=== PATIENT | female | born 1945 | race Caucasian/White ===

== ENCOUNTER 2018-07-16 21:08 | Inpatient (IN) | payer MEDICARE, OTHER ==
[~2018-07-16] VITALS: Ht 149.9 cm; Wt 51.0 kg
[2018-07-16 21:30] LABS: BASOPHILS ABSOLUTE AUTO 0.04 K/mm3 (0.00-0.23); BASOPHILS PERCENT AUTO 0 % (0-2); EOSINOPHILS ABSOLUTE AUTO 0.11 K/mm3 (0.00-0.68); EOSINOPHILS PERCENT AUTO 1 % (0-6); Hematocrit 37.8 % (33.0-51.0); Hemoglobin 12.7 g/dL (11.5-16.0); IMMATURE GRAN ABSOLUTE AUTO 0.05 K/mm3 (0.00-0.10); IMMATURE GRAN PERCENT AUTO 0 % (0-1); LYMPHOCYTES ABSOLUTE AUTO 0.77 K/mm3 (0.84-5.20); LYMPHOCYTES PERCENT AUTO 6 % (21-46); MONOCYTES ABSOLUTE AUTO 0.91 K/mm3 (0.16-1.47); MONOCYTES PERCENT AUTO 8 % (4-13); Mean Corpuscular HGB 33.4 pg (26.0-34.0); Mean Corpuscular HGB Conc 33.6 g/dL (31.5-36.5); Mean Corpuscular Volume 100 fL (80-100); Mean Platelet Volume 9.6 fL (9.1-12.4); NEUTROPHILS ABSOLUTE AUTO 10.33 K/mm3 (1.96-9.15); NEUTROPHILS PERCENT AUTO 85 % (41-73); Platelet Count 240 K/mm3 (150-400); RDW Coefficient Variation 12.2 % (11.7-14.2); RDW Standard Deviation 44.9 fL (35.1-46.3); White Blood Cell Count 12.21 K/mm3 (4.00-11.30)
[2018-07-16] MEDS ORDERED: METFORMIN HCL500 MG PO (21:43)
[2018-07-16] MEDS ORDERED: ONDA4 PO (21:44)
[2018-07-16] MEDS ORDERED: ATOR20 PO (21:44)
[2018-07-16] MEDS ORDERED: Ranitidine HCl300 M1 PO (21:45)
[2018-07-16] MEDS ORDERED: MELO7.5 PO (21:45)
[2018-07-16] MEDS ORDERED: BUDE6HFA INH (21:45)
[2018-07-16 21:51] LABS: Alanine Aminotransfer (ALT/SGP 19 U/L (12-78); Albumin/Globulin Ratio 1.1 (0.8-1.8); Alk Phos 75 U/L (50-136); Anion Gap 7 mmol/L (6-16); Aspartate Aminotrans (AST/SGOT 22 U/L (12-37); Bilirubin, Total 0.5 mg/dL (0.1-1.0); Blood Urea Nitrogen 11 mg/dL (8-24); Bun/Creatinine Ratio 14.8 (12.0-20.0); CO2, Blood 28 mmol/L (21-32); Calcium, Blood 9.4 mg/dL (8.5-10.1); Chloride, Blood 105 mmol/L (98-108); Creatinine, Blood 0.75 mg/dL (0.40-1.00); Globulin, Blood 3.6 g/dL (2.2-4.0); Glomerular Filtration Rate >60 (60-); Glucose, Blood 152 mg/dL (70-99); Sodium, Blood 140 mmol/L (136-145); Total Protein, Blood 7.6 g/dL (6.4-8.2); Troponin I <0.015 ng/mL (0.000-0.040)
[2018-07-17 02:23] LABS: Influenza A Negative (NEGATIVE); Influenza B Negative (NEGATIVE)
[2018-07-17 05:48] LABS: Hematocrit 35.2 % (33.0-51.0); Hemoglobin 11.6 g/dL (11.5-16.0); Mean Corpuscular HGB 33.1 pg (26.0-34.0); Mean Corpuscular Volume 101 fL (80-100); Mean Platelet Volume 9.5 fL (9.1-12.4); Platelet Count 238 K/mm3 (150-400); RDW Coefficient Variation 12.3 % (11.7-14.2); RDW Standard Deviation 45.9 fL (35.1-46.3); White Blood Cell Count 8.82 K/mm3 (4.00-11.30)
[2018-07-17 06:05] LABS: Alanine Aminotransfer (ALT/SGP 18 U/L (12-78); Albumin, Blood 3.5 g/dL (3.4-5.0); Alk Phos 67 U/L (50-136); Anion Gap 8 mmol/L (6-16); Aspartate Aminotrans (AST/SGOT 20 U/L (12-37); Bilirubin, Total 0.3 mg/dL (0.1-1.0); Blood Urea Nitrogen 13 mg/dL (8-24); Bun/Creatinine Ratio 17.4 (12.0-20.0); CO2, Blood 25 mmol/L (21-32); Calcium, Blood 9.3 mg/dL (8.5-10.1); Chloride, Blood 107 mmol/L (98-108); Creatinine, Blood 0.75 mg/dL (0.40-1.00); Globulin, Blood 3.4 g/dL (2.2-4.0); Glomerular Filtration Rate >60 (60-); Glucose, Blood 245 mg/dL (70-99); Potassium, Blood 4.5 mmol/L (3.5-5.5); Sodium, Blood 140 mmol/L (136-145); Total Protein, Blood 6.9 g/dL (6.4-8.2)
[2018-07-17 06:13] LABS: Troponin I 0.027 ng/mL (0.000-0.040)
[2018-07-17 14:12] LABS: Troponin I 0.015 ng/mL (0.000-0.040)
[2018-07-18 02:01] LABS: BASOPHILS ABSOLUTE AUTO 0.01 K/mm3 (0.00-0.23); BASOPHILS PERCENT AUTO 0 % (0-2); EOSINOPHILS PERCENT AUTO 0 % (0-6); Hematocrit 35.9 % (33.0-51.0); Hemoglobin 12.2 g/dL (11.5-16.0); IMMATURE GRAN ABSOLUTE AUTO 0.05 K/mm3 (0.00-0.10); IMMATURE GRAN PERCENT AUTO 1 % (0-1); LYMPHOCYTES ABSOLUTE AUTO 0.54 K/mm3 (0.84-5.20); LYMPHOCYTES PERCENT AUTO 5 % (21-46); MONOCYTES ABSOLUTE AUTO 0.29 K/mm3 (0.16-1.47); MONOCYTES PERCENT AUTO 3 % (4-13); Mean Corpuscular HGB 33.5 pg (26.0-34.0); Mean Corpuscular Volume 99 fL (80-100); Mean Platelet Volume 9.5 fL (9.1-12.4); NEUTROPHILS ABSOLUTE AUTO 9.93 K/mm3 (1.96-9.15); NEUTROPHILS PERCENT AUTO 92 % (41-73); Platelet Count 265 K/mm3 (150-400); RDW Coefficient Variation 12.1 % (11.7-14.2); RDW Standard Deviation 44.1 fL (35.1-46.3); Red Blood Cell Count 3.64 M/mm3 (3.80-5.20); White Blood Cell Count 10.82 K/mm3 (4.00-11.30)
[2018-07-18 02:10] LABS: Anion Gap 8 mmol/L (6-16); Blood Urea Nitrogen 23 mg/dL (8-24); Bun/Creatinine Ratio 29.7 (12.0-20.0); CO2, Blood 27 mmol/L (21-32); Calcium, Blood 9.1 mg/dL (8.5-10.1); Chloride, Blood 106 mmol/L (98-108); Creatinine, Blood 0.77 mg/dL (0.40-1.00); Glomerular Filtration Rate >60 (60-); Glucose, Blood 143 mg/dL (70-99); Potassium, Blood 3.9 mmol/L (3.5-5.5); Sodium, Blood 141 mmol/L (136-145)
[2018-07-18 10:10] LABS: Creatine Kinase MB 9.5 ng/mL (0.0-3.6); Creatine Kinase MB Index 5.9 (0.0-4.0)
[2018-07-19 04:59] LABS: Hematocrit 34.9 % (33.0-51.0); Hemoglobin 11.9 g/dL (11.5-16.0); Mean Corpuscular HGB 33.4 pg (26.0-34.0); Mean Corpuscular HGB Conc 34.1 g/dL (31.5-36.5); Mean Corpuscular Volume 98 fL (80-100); Mean Platelet Volume 9.7 fL (9.1-12.4); Platelet Count 265 K/mm3 (150-400); RDW Coefficient Variation 12.4 % (11.7-14.2); RDW Standard Deviation 44.7 fL (35.1-46.3); Red Blood Cell Count 3.56 M/mm3 (3.80-5.20); White Blood Cell Count 13.38 K/mm3 (4.00-11.30)
[2018-07-19 05:25] LABS: Anion Gap 7 mmol/L (6-16); Blood Urea Nitrogen 36 mg/dL (8-24); CHOL/HDL RATIO 2.8; CO2, Blood 26 mmol/L (21-32); Calcium, Blood 8.9 mg/dL (8.5-10.1); Chloride, Blood 107 mmol/L (98-108); Cholesterol 157 mg/dL (50-200); Creatinine, Blood 0.88 mg/dL (0.40-1.00); Glomerular Filtration Rate >60 (60-); Glucose, Blood 197 mg/dL (70-99); HDL Cholesterol 57 mg/dL (>39); LDL/HDL RATIO 1.4; Low Density Lipoprotein Chol 79 mg/dL (0-110); Sodium, Blood 140 mmol/L (136-145); Triglycerides 105 mg/dL (30-160); Very Low Density Lipoprot Chol 21 mg/dL (6-32)
[2018-07-20] MEDS ORDERED: BENZ100A PO (11:58)
[2018-07-20] MEDS ORDERED: ASPI81CH PO (11:58)
[2018-07-20] MEDS ORDERED: CLOP75 PO (11:59)
[2018-07-20] MEDS ORDERED: COMBIVENT RESPIM4 GM INH (12:00)
[2018-07-20] MEDS ORDERED: SACC250C PO (12:01)
[2018-07-20] MEDS ORDERED: NEBI5 PO (12:01)
[2018-07-20] MEDS ORDERED: ALBU90OI6 INH (12:02)
[2018-07-20] MEDS ORDERED: AZIT500 PO (12:02)
[2018-07-20] MEDS ORDERED: PRED20 PO (12:03)
== END 2018-07-20 18:03 | disposition home or self-care (01) | DRG 189 ==
LOC: ER 21:08 → MEDS 21:09 → EDBEDREQDT 07-17 00:38 → MEDS 07-17 01:42 → ENPENDDIS 07-20 12:07 → MEDS 07-20 16:38
PROVIDERS: Emergency Medicine; Family Medicine; Internal Medicine
DX: J96.01 Acute respiratory failure with hypoxia (principal); I21.4 Non-ST elevation (NSTEMI) myocardial infarction; J44.0 Chronic obstructive pulmonary disease with (acute) lower respiratory infection; J44.1 Chronic obstructive pulmonary disease with (acute) exacerbation; J20.9 Acute bronchitis, unspecified; F41.9 Anxiety disorder, unspecified; K21.9 Gastro-esophageal reflux disease without esophagitis; M19.90 Unspecified osteoarthritis, unspecified site; R10.13 Epigastric pain; E11.65 Type 2 diabetes mellitus with hyperglycemia; F17.210 Nicotine dependence, cigarettes, uncomplicated; I25.10 Atherosclerotic heart disease of native coronary artery without angina pectoris; Z79.4 Long term (current) use of insulin; Z79.82 Long term (current) use of aspirin
CPT/HCPCS: 36415; 71046; 80048; 80053; 80061; 81000; 82550; 82553; 82947; 83036; 83605; 83690; 83880; 84145; 84484; 85025; 85027; 87070; 87205; 87804; 93005; 93010; 93306; 94640; 94644; 94760; 96365; 96375; 99285-25; J0360; J0456; J0696; J1100; J1650; J2405; J2930; J7050

== ENCOUNTER 2019-06-16 07:29 | Day surgery (SDC) | payer MEDICARE, OTHER ==
[~2019-06-16] VITALS: Ht 149.9 cm; Wt 58.8 kg
[~2019-06-16 07:29] MED LIST: ALBU90OI PO; ALBU90OI6 INH; ASPI81CH PO; ATOR20 PO; AZIT500 PO; BENZ100A; BENZ100A PO; BUDE6HFA INH; CLOP75 PO; GUAI600T33 PO; LISI20 PO; MELO7.5 PO; METFORMIN HCL500 MG PO; METO50ER; Mobic15 MG PO; NEBI5 PO; ONDA4 PO; PRED20 PO; Ranitidine HCl300 M1 PO; SACC250C PO
--- NOTE | 2019-06-16 11:49 | NUR ---
06/16/19 1149 Lauren Rios 0841 PT. WITH SCATTERED EXP SQUEAKS POSTERIORLY, DR. PERALES NOTIFIED, DUONEB ORDER GIVEN IN WHICH PT. RECEIVED. 0849 PT. WITH FAINTER SQUEAKS BUT ONLY ON RIGHT SIDE. PT. DENIES SOB. PT. DID VERBALIZE DOING A NEBULIZER AT HOME AROUND 0630. PT. ALSO A SMOKER.
== END 2019-06-16 09:35 | disposition home or self-care (01) ==
LOC: ORSCSDS 07:29
PROVIDERS: Internal Medicine Gastroenterology
PROC: 0DB68ZX Excision of Stomach, Via Natural or Artificial Opening Endoscopic, Diagnostic (ICD-10-PCS; principal; 2019-06-16 08:45)
DX: R10.13 Epigastric pain (principal); K29.70 Gastritis, unspecified, without bleeding; R11.2 Nausea with vomiting, unspecified; K21.9 Gastro-esophageal reflux disease without esophagitis; K29.80 Duodenitis without bleeding; E11.9 Type 2 diabetes mellitus without complications; I10 Essential (primary) hypertension; F17.210 Nicotine dependence, cigarettes, uncomplicated; J44.9 Chronic obstructive pulmonary disease, unspecified; Z79.82 Long term (current) use of aspirin; Z79.84 Long term (current) use of oral hypoglycemic drugs; Z79.899 Other long term (current) drug therapy
CPT/HCPCS: 82947; 88305; 88342; J2704; J7120

== ENCOUNTER 2019-12-25 20:56 | Inpatient (IN) | payer MEDICARE, OTHER ==
[~2019-12-25] VITALS: Ht 160 cm; Wt 47.5 kg
[~2019-12-25 20:56] MED LIST changes: +METO50 PO; -METO50ER
[2019-12-25 21:19] LABS: BASOPHILS ABSOLUTE AUTO 0.04 K/mm3 (0.00-0.23); BASOPHILS PERCENT AUTO 1 % (0-2); EOSINOPHILS PERCENT AUTO 0 % (0-6); Hematocrit 37.1 % (33.0-51.0); Hemoglobin 12.7 g/dL (11.5-16.0); IMMATURE GRAN ABSOLUTE AUTO 0.02 K/mm3 (0.00-0.10); IMMATURE GRAN PERCENT AUTO 0 % (0-1); LYMPHOCYTES ABSOLUTE AUTO 0.86 K/mm3 (0.84-5.20); LYMPHOCYTES PERCENT AUTO 11 % (21-46); MONOCYTES ABSOLUTE AUTO 0.99 K/mm3 (0.16-1.47); MONOCYTES PERCENT AUTO 13 % (4-13); Mean Corpuscular HGB 32.3 pg (26.0-34.0); Mean Corpuscular HGB Conc 34.2 g/dL (31.5-36.5); Mean Corpuscular Volume 94 fL (80-100); Mean Platelet Volume 10.5 fL (9.1-12.4); NEUTROPHILS ABSOLUTE AUTO 6.03 K/mm3 (1.96-9.15); NEUTROPHILS PERCENT AUTO 76 % (41-73); Platelet Count 175 K/mm3 (150-400); RDW Coefficient Variation 11.9 % (11.7-14.2); RDW Standard Deviation 41.6 fL (35.1-46.3); Red Blood Cell Count 3.93 M/mm3 (3.80-5.20); White Blood Cell Count 7.94 K/mm3 (4.00-11.30)
[2019-12-25 21:38] LABS: Anion Gap 7 mmol/L (6-16); Blood Urea Nitrogen 22 mg/dL (8-24); Bun/Creatinine Ratio 23.1 (12.0-20.0); CO2, Blood 25 mmol/L (21-32); Calcium, Blood 9.1 mg/dL (8.5-10.1); Chloride, Blood 103 mmol/L (98-108); Creatinine, Blood 0.95 mg/dL (0.40-1.00); Glomerular Filtration Rate >60 (60-); Glucose, Blood 141 mg/dL (70-99); Sodium, Blood 135 mmol/L (136-145); Troponin I 0.042 ng/mL (0.000-0.040)
[2019-12-25] MEDS ORDERED: OMEP20ER PO (23:00)
[2019-12-25] MEDS ORDERED: BUPROPION XL150 M1 PO (23:00)
[2019-12-25] MEDS ORDERED: ATOR80 PO (23:02)
[2019-12-25 23:09] LABS: Influenza A Negative (NEGATIVE); Influenza B Negative (NEGATIVE)
[2019-12-26 03:25] LABS: Adenovirus Not Detected (NOT DETECT); Bordetella pertussis Not Detected (NOT DETECT); Chlamydophila pneumoniae Not Detected (NOT DETECT); Coronavirus 229E Not Detected (NOT DETECT); Coronavirus HKU1 Not Detected (NOT DETECT); Coronavirus NL63 Not Detected (NOT DETECT); Coronavirus OC43 Not Detected (NOT DETECT); Human Metapneumovirus Not Detected (NOT DETECT); Human Rhinovirus/Enterovirus Not Detected (NOT DETECT); Influenza A/2009-H1 Not Detected (NOT DETECT); Influenza A/H1 Not Detected (NOT DETECT); Influenza A/H3 Not Detected (NOT DETECT); Influenza B Not Detected (NOT DETECT); Mycoplasma pneumoniae Not Detected (NOT DETECT); Parainfluenza Virus 1 Not Detected (NOT DETECT); Parainfluenza Virus 2 Not Detected (NOT DETECT); Parainfluenza Virus 3 Not Detected (NOT DETECT); Parainfluenza Virus 4 Not Detected (NOT DETECT); Respiratory Syncytial Virus Detected (NOT DETECT)
[2019-12-26 05:24] LABS: Hematocrit 36.3 % (33.0-51.0); Hemoglobin 12.1 g/dL (11.5-16.0); Mean Corpuscular HGB Conc 33.3 g/dL (31.5-36.5); Mean Corpuscular Volume 96 fL (80-100); Mean Platelet Volume 10.3 fL (9.1-12.4); Platelet Count 163 K/mm3 (150-400); RDW Standard Deviation 42.7 fL (35.1-46.3); Red Blood Cell Count 3.78 M/mm3 (3.80-5.20); White Blood Cell Count 8.28 K/mm3 (4.00-11.30)
[2019-12-26 05:39] LABS: Alanine Aminotransfer (ALT/SGP 37 U/L (12-78); Albumin, Blood 3.4 g/dL (3.4-5.0); Albumin/Globulin Ratio 0.9 (0.8-1.8); Alk Phos 58 U/L (50-136); Anion Gap 7 mmol/L (6-16); Aspartate Aminotrans (AST/SGOT 53 U/L (12-37); Bilirubin, Total 0.4 mg/dL (0.1-1.0); Blood Urea Nitrogen 25 mg/dL (8-24); Bun/Creatinine Ratio 28.2 (12.0-20.0); CO2, Blood 24 mmol/L (21-32); Calcium, Blood 8.9 mg/dL (8.5-10.1); Chloride, Blood 105 mmol/L (98-108); Creatinine, Blood 0.89 mg/dL (0.40-1.00); Globulin, Blood 3.6 g/dL (2.2-4.0); Glomerular Filtration Rate >60 (60-); Glucose, Blood 217 mg/dL (70-99); Potassium, Blood 4.1 mmol/L (3.5-5.5); Sodium, Blood 136 mmol/L (136-145)
[2019-12-26 05:50] LABS: BAND PERCENT MAN 10 % (0-8); BASOPHILS PERCENT MAN 0 % (0-2); EOSINOPHILS PERCENT MAN 0 % (0-6); LYMPHOCYTES ABSOLUTE MAN 0.41 K/mm3 (0.84-5.20); LYMPHOCYTES PERCENT MAN 5 % (21-46); MONOCYTES ABSOLUTE MAN 0.24 K/mm3 (0.16-1.47); MONOCYTES PERCENT MAN 3 % (4-13); NEUTROPHILS ABSOLUTE MAN 7.61 K/mm3 (1.96-9.15); SEG NEUTROPHILS PERCENT MAN 82 % (41-73); TOTAL CELLS COUNTED 100
[2019-12-26 08:05] LABS: Troponin I 0.034 ng/mL (0.000-0.040)
[2019-12-26 08:19] LABS: Creatine Kinase MB 6.5 ng/mL (0.0-3.6); Creatine Kinase MB Index 1.4 (0.0-4.0)
--- NOTE | 2019-12-26 13:15 | NUR ---
PT ADMITTED TO ROOM 302 VIA GURJS FROM ED AT 1245. MASK ON UPON ARRIVAL TO ROOM AND PLACED IN DROPLET ISOLATION DUE TO +RSV. SHE REMOVED HER OXYGEN ON ARRIVAL AND REPORTED SHE DIDN'T GENERALLY USE IT AND SATS REMAINED IN 90'S. UP TO BATHROOM INDEPENDENTLY. SOB WITH ACTIVITY BUT SELF RESOLVES. REPORTS HER DAUGHTER WILL BE HERE LATER AND CAN HELP WITH RECONCILING HER MED LIST.
[2019-12-26 16:03] LABS: Troponin I 0.024 ng/mL (0.000-0.040)
[2019-12-26 16:22] LABS: Creatine Kinase MB 7.7 ng/mL (0.0-3.6)
[2019-12-26] MEDS ORDERED: Duoneb 2.5-0.5 M3 ML INH (17:48)
[2019-12-26] MEDS ORDERED: Acetaminophen1 EAC2 PO (17:51)
--- NOTE | 2019-12-26 18:26 | NUR ---
SHIFT SUMMARY PT INDEPENDENT IN ROOM TO BATHROOM. REPORTS SHE DOESN'T EAT MUCH AT [facility] AND DOESN'T HAVE HER TEETH WITH HER. OFFERED HER ALTERNATIVES DUE TO HER TEETH AND SHE DECLINED. RESP STATUS STABLE WITH SOB ON ACTIVITY.
[2019-12-27 04:56] LABS: Hematocrit 37.8 % (33.0-51.0); Hemoglobin 12.5 g/dL (11.5-16.0); Mean Corpuscular HGB 31.4 pg (26.0-34.0); Mean Corpuscular HGB Conc 33.1 g/dL (31.5-36.5); Mean Corpuscular Volume 95 fL (80-100); Mean Platelet Volume 10.7 fL (9.1-12.4); Platelet Count 207 K/mm3 (150-400); RDW Coefficient Variation 11.9 % (11.7-14.2); RDW Standard Deviation 41.4 fL (35.1-46.3); Red Blood Cell Count 3.98 M/mm3 (3.80-5.20); White Blood Cell Count 10.55 K/mm3 (4.00-11.30)
[2019-12-27 05:46] LABS: BAND PERCENT MAN 2 % (0-8); BASOPHILS PERCENT MAN 0 % (0-2); EOSINOPHILS PERCENT MAN 0 % (0-6); LYMPHOCYTES % ATYPICAL MANUAL 3 % (0-0); LYMPHOCYTES ABSOLUTE MAN 1.37 K/mm3 (0.84-5.20); LYMPHOCYTES PERCENT MAN 10 % (21-46); MONOCYTES ABSOLUTE MAN 0.31 K/mm3 (0.16-1.47); MONOCYTES PERCENT MAN 3 % (4-13); NEUTROPHILS ABSOLUTE MAN 8.86 K/mm3 (1.96-9.15); SEG NEUTROPHILS PERCENT MAN 82 % (41-73); TOTAL CELLS COUNTED 100
--- NOTE | 2019-12-27 06:45 | NUR ---
VICE PRESIDENT SUMMARY Patient slept very poorly most of night. initially to wide awake to sleep. Order received and given for benedryl. After about 30 minutes of sleep, patient began dry hacking cough for which order for 200mg tessalon pearles was rec'd and given, Patient still coughed most of night, and then finally fell asleep around 0530 this morning
--- NOTE | 2019-12-27 06:54 | NUR ---
AM protonix held as patient had just gotten to sleep. Day RN informed.
[2019-12-27] MEDS ORDERED: AZIT250 PO (11:51)
[2019-12-27] MEDS ORDERED: PRED20 PO (11:52)
--- NOTE | 2019-12-27 13:26 | NUR ---
DISCHARGE SUMMARY PT DISCHARGED TO HOME. PT LEFT ROOM VIA WHEELCHAIR AT ABOUT 1245 WITH IRON CUTTER ESCORT AND DAUGHTER PRESENT. IV DC'D AND BELONGINGS RETURNED. PT AND DAUGHTER EDUCATED ON ALL DISCHARGE INSTRUCTIONS. ALL QUESTIONS ANSWERED. PT AGREES TO FOLLOW UP WITH [facility] WITHIN ONE WEEK. PT EDUCATED ON MEDICATIONS.
== END 2019-12-27 12:51 | disposition home or self-care (01) | DRG 189 ==
LOC: ER 20:56 → ERHOLD 12-26 00:40 → MEDS 12-26 12:35
PROVIDERS: Physician Assistant; Student in an Organized Health Care Education/Training Program; ADMIT Internal Medicine
DX: J96.01 Acute respiratory failure with hypoxia (principal); J44.1 Chronic obstructive pulmonary disease with (acute) exacerbation; J44.0 Chronic obstructive pulmonary disease with (acute) lower respiratory infection; J20.5 Acute bronchitis due to respiratory syncytial virus; E11.9 Type 2 diabetes mellitus without complications; R07.89 Other chest pain; M25.512 Pain in left shoulder; E78.5 Hyperlipidemia, unspecified; I10 Essential (primary) hypertension; F17.210 Nicotine dependence, cigarettes, uncomplicated; Z79.82 Long term (current) use of aspirin; Z79.84 Long term (current) use of oral hypoglycemic drugs; Z79.899 Other long term (current) drug therapy
CPT/HCPCS: 0099U; 36415; 71046; 73030; 80048; 80053; 82550; 82553; 82947; 83880; 84484; 85025; 87804; 93005; 93010; 94640; 94664; 94667; 94760; 96372-59; 96374; 96375; 96376; 98960; 99285-25; 99407; A9270-GY; J0456; J1650; J2920; J2930; J7050; Q0163

== ENCOUNTER 2022-03-16 12:46 | Emergency (ER) | payer MEDICARE, OTHER ==
[~2022-03-16] VITALS: Ht 154.9 cm; Wt 48.4 kg
[~2022-03-16 12:46] MED LIST changes: +ATOR80 PO; +AZIT250 PO; +Acetaminophen1 EAC2 PO; +BUPROPION XL150 M1 PO; +Duoneb 2.5-0.5 M3 ML INH; +OMEP20ER PO
[2022-03-16 14:53] LABS: SARS-Cov-2 (COVID-19) PCR, MMC NEGATIVE (NEGATIVE)
[2022-03-16 15:16] LABS: BASOPHILS ABSOLUTE AUTO 0.04 K/mm3 (0.00-0.23); BASOPHILS PERCENT AUTO 0 % (0-2); EOSINOPHILS ABSOLUTE AUTO 0.07 K/mm3 (0.00-0.68); EOSINOPHILS PERCENT AUTO 1 % (0-6); Hematocrit 38.8 % (33.0-51.0); Hemoglobin 13.1 g/dL (11.5-16.0); IMMATURE GRAN ABSOLUTE AUTO 0.11 K/mm3 (0.00-0.10); IMMATURE GRAN PERCENT AUTO 1 % (0-1); LYMPHOCYTES ABSOLUTE AUTO 0.76 K/mm3 (0.84-5.20); LYMPHOCYTES PERCENT AUTO 7 % (21-46); MONOCYTES ABSOLUTE AUTO 1.25 K/mm3 (0.16-1.47); MONOCYTES PERCENT AUTO 11 % (4-13); Mean Corpuscular HGB 31.7 pg (26.0-34.0); Mean Corpuscular HGB Conc 33.8 g/dL (31.5-36.5); Mean Corpuscular Volume 94 fL (80-100); Mean Platelet Volume 9.7 fL (9.1-12.4); NEUTROPHILS ABSOLUTE AUTO 9.43 K/mm3 (1.96-9.15); NEUTROPHILS PERCENT AUTO 81 % (41-73); Platelet Count 322 K/mm3 (150-400); RDW Coefficient Variation 12.8 % (11.7-14.2); RDW Standard Deviation 44.4 fL (35.1-46.3); Red Blood Cell Count 4.13 M/mm3 (3.80-5.20); White Blood Cell Count 11.66 K/mm3 (4.00-11.30)
[2022-03-16 15:29] LABS: Albumin, Blood 3.4 g/dL (3.4-5.0); Albumin/Globulin Ratio 0.8 (0.8-1.8); Bilirubin, Total 0.6 mg/dL (0.1-1.0); Bun/Creatinine Ratio 20.8 (12.0-20.0); Calcium, Blood 9.6 mg/dL (8.5-10.1); Creatinine, Blood 1.01 mg/dL (0.40-1.00); Globulin, Blood 4.5 g/dL (2.2-4.0); Potassium, Blood 4.3 mmol/L (3.5-5.5); Total Protein, Blood 7.9 g/dL (6.4-8.2)
[2022-03-16] MEDS ORDERED: Prednisone50 MG PO (20:32)
== END 2022-03-16 20:49 | disposition home or self-care (01) ==
LOC: ER 12:46
PROVIDERS: Physician Assistant
DX: J44.9 Chronic obstructive pulmonary disease, unspecified (principal); E11.9 Type 2 diabetes mellitus without complications; I25.10 Atherosclerotic heart disease of native coronary artery without angina pectoris; F17.210 Nicotine dependence, cigarettes, uncomplicated; Z79.84 Long term (current) use of oral hypoglycemic drugs; Z79.899 Other long term (current) drug therapy; Z79.82 Long term (current) use of aspirin; Z79.52 Long term (current) use of systemic steroids; Z88.5 Allergy status to narcotic agent; Z95.1 Presence of aortocoronary bypass graft; Z20.822 Contact with and (suspected) exposure to COVID-19
CPT/HCPCS: 36415; 71046; 80053; 83690; 84484; 85025; 93005; 93010; 94644; 94664; J7512; U0004

== ENCOUNTER 2022-11-15 23:17 | Inpatient (IN) | payer MEDICARE, OTHER ==
[~2022-11-15] VITALS: Ht 162.6 cm; Wt 77.1 kg
[~2022-11-15 23:17] MED LIST changes: -ATOR80 PO; +Prednisone50 MG PO
[2022-11-15 23:50] LABS: BASOPHILS ABSOLUTE AUTO 0.04 K/mm3 (0.00-0.23); BASOPHILS PERCENT AUTO 0 % (0-2); EOSINOPHILS PERCENT AUTO 0 % (0-6); Hematocrit 39.8 % (33.0-51.0); Hemoglobin 13.7 g/dL (11.5-16.0); IMMATURE GRAN ABSOLUTE AUTO 0.05 K/mm3 (0.00-0.10); IMMATURE GRAN PERCENT AUTO 0 % (0-1); LYMPHOCYTES ABSOLUTE AUTO 0.51 K/mm3 (0.84-5.20); LYMPHOCYTES PERCENT AUTO 4 % (21-46); MONOCYTES ABSOLUTE AUTO 0.81 K/mm3 (0.16-1.47); MONOCYTES PERCENT AUTO 7 % (4-13); Mean Corpuscular HGB 31.8 pg (26.0-34.0); Mean Corpuscular HGB Conc 34.4 g/dL (31.5-36.5); Mean Corpuscular Volume 92 fL (80-100); Mean Platelet Volume 9.7 fL (9.1-12.4); NEUTROPHILS ABSOLUTE AUTO 10.15 K/mm3 (1.96-9.15); NEUTROPHILS PERCENT AUTO 88 % (41-73); Platelet Count 216 K/mm3 (150-400); RDW Coefficient Variation 12.5 % (11.7-14.2); RDW Standard Deviation 42.7 fL (35.1-46.3); Red Blood Cell Count 4.31 M/mm3 (3.80-5.20); White Blood Cell Count 11.56 K/mm3 (4.00-11.30)
[2022-11-16 00:09] LABS: Albumin, Blood 3.8 g/dL (3.4-5.0); Albumin/Globulin Ratio 1.1 (0.8-1.8); Bilirubin, Total 0.3 mg/dL (0.1-1.0); Bun/Creatinine Ratio 26.3 (12.0-20.0); Calcium, Blood 9.2 mg/dL (8.5-10.1); Creatinine, Blood 0.84 mg/dL (0.40-1.00); Globulin, Blood 3.6 g/dL (2.2-4.0); Potassium, Blood 3.9 mmol/L (3.5-5.5); Total Protein, Blood 7.4 g/dL (6.4-8.2)
[2022-11-16 00:38] LABS: Influenza A, PCR NEGATIVE (NEGATIVE); Influenza B, PCR NEGATIVE (NEGATIVE); Resp Syncytial Virus, PCR NEGATIVE (NEGATIVE); SARS-Cov-2 (COVID-19) PCR, MMC NEGATIVE (NEGATIVE)
[2022-11-16] MEDS ORDERED: PANTOPRAZOLE SO40 M2 PO (03:18)
[2022-11-16] MEDS ORDERED: Ventolin/Prove6.7 GM INH (03:20)
--- NOTE | 2022-11-16 04:16 | NUR ---
ADMIT NOTE 77 YR OLD FEMALE ADMITTED TO FLOOR FROM THE ED WITH DX OF COPD EXACERBATION. ALERT AND ORIENTED X 4. ED RN REPORTED PT HAD REPORTED SOB AND COUGH FOR 2 WKS AND DEVELOPED UPPER ABD PAIN RADIATING TO LEFT CHEST, AND THAT SHE HAD A TACHY HR POSSIBLY DUE TO MULTIPLE RESP TREATMENTS. UPON ARRIVAL AT FLOOR, DENIED CHEST PAIN. RECEIVED REP TREAMENT PER RT. LUNG SOUNDS DIMINISHED TO AUSCULTATION. OTHER THAN ELEVATED DBP, VSS. ACCU CHECK 289, SCHEDULED INSULIN ADMIN. ORIENTED TO USE OF CALL LIGHT. CALL LIGHT IN REACH. VOICED SHE WANTED TO SLEEP, HADN'T SLEPT IN "THREE DAYS". WAS ASSISTED TO RESTROOM TO VOID. SKIN CHECK SOME REDNESS OF COCCYX AREA. WILL CONTINUE TO MONITOR.
--- NOTE | 2022-11-16 17:02 | NUR ---
SHIFT SUMMARY PT A&OX4 AND PLEASANT. PT HAD ELEVATED TROPONIN OF 136. DR MADRID NOTIFIED. ORDERS GIVEN FOR REPEAT TROPONIN LABS. PT ABLE TO SLEEP DURING AFTERNOON. DAUGHTER AT BEDSIDE IN EVENING. CALLS APPROPRIATLY. BED IN LOWEST POSITION AND CALL LIGHT IN REACH.
[2022-11-17 05:18] LABS: BASOPHILS ABSOLUTE AUTO 0.03 K/mm3 (0.00-0.23); BASOPHILS PERCENT AUTO 0 % (0-2); EOSINOPHILS PERCENT AUTO 0 % (0-6); Hematocrit 35.6 % (33.0-51.0); Hemoglobin 12.3 g/dL (11.5-16.0); IMMATURE GRAN ABSOLUTE AUTO 0.08 K/mm3 (0.00-0.10); IMMATURE GRAN PERCENT AUTO 1 % (0-1); LYMPHOCYTES ABSOLUTE AUTO 0.63 K/mm3 (0.84-5.20); LYMPHOCYTES PERCENT AUTO 4 % (21-46); MONOCYTES ABSOLUTE AUTO 0.87 K/mm3 (0.16-1.47); MONOCYTES PERCENT AUTO 5 % (4-13); Mean Corpuscular HGB 31.5 pg (26.0-34.0); Mean Corpuscular HGB Conc 34.6 g/dL (31.5-36.5); Mean Corpuscular Volume 91 fL (80-100); NEUTROPHILS ABSOLUTE AUTO 14.82 K/mm3 (1.96-9.15); NEUTROPHILS PERCENT AUTO 90 % (41-73); Platelet Count 201 K/mm3 (150-400); RDW Coefficient Variation 13.2 % (11.7-14.2); RDW Standard Deviation 44.4 fL (35.1-46.3); Red Blood Cell Count 3.91 M/mm3 (3.80-5.20); White Blood Cell Count 16.43 K/mm3 (4.00-11.30)
--- NOTE | 2022-11-17 05:43 | NUR ---
HEALTH CARE FACILITY ADMINISTRATOR SUMMARY VSS. TROPONIN LEVELS TRENDING DOWN. HAS BEEN RESTING QUIETLY WITH FEW INTERRUPTIONS. DENIED CHEST PAIN WHEN ASKED. ASYMPTOMATIC. CALL LIGHT IN REACH. RESP TREATMENTS PER RT - SEE MAR FOR DETAILS. WILL CONTINUE TO MONITOR
[2022-11-17 06:01] LABS: Albumin, Blood 3.2 g/dL (3.4-5.0); Bilirubin, Total 0.3 mg/dL (0.1-1.0); Bun/Creatinine Ratio 34.8 (12.0-20.0); Calcium, Blood 9.3 mg/dL (8.5-10.1); Creatinine, Blood 1.41 mg/dL (0.40-1.00); Globulin, Blood 3.3 g/dL (2.2-4.0); Potassium, Blood 3.3 mmol/L (3.5-5.5); Total Protein, Blood 6.5 g/dL (6.4-8.2)
--- NOTE | 2022-11-17 10:04 | NUR ---
CRITICAL LAB VALUE CONTACTED DR. MADRID ABOUT A CRITICAL LAB VALUE FOR TROPONIN OF 184. PROVIDER WAS NOTIFED.
--- NOTE | 2022-11-17 12:05 | NUR ---
NOTIFIED BY GRANT IN TELE THAT PT HAD A 3 SECOND RUN OF SVT IN THE 150'S. DR. MADRID WAS NOTIFIED.
[2022-11-17 14:15] LABS: Albumin, Blood 3.3 g/dL (3.4-5.0); Anion Gap 5 mmol/L (6-16); Blood Urea Nitrogen 51 mg/dL (8-24); Bun/Creatinine Ratio 38.6 (12.0-20.0); CO2, Blood 28 mmol/L (21-32); Calcium, Blood 9.4 mg/dL (8.5-10.1); Chloride, Blood 105 mmol/L (98-108); Creatinine, Blood 1.32 mg/dL (0.40-1.00); Glomerular Filtration Rate 42 (60-); Glucose, Blood 168 mg/dL (70-99); Potassium, Blood 3.6 mmol/L (3.5-5.5); Sodium, Blood 138 mmol/L (136-145)
--- NOTE | 2022-11-17 15:00 | NUR ---
CRITICAL LAB VALUE FOR TROPONIN AT 1430 OF 167. TRENDING DOWN FROM PREVIOUS.
[2022-11-17] MEDS ORDERED: Acetaminophen650 M1 PO (17:20)
[2022-11-17] MEDS ORDERED: IPRAT-ALBUT 0.5-3 ML INH (17:21)
[2022-11-17] MEDS ORDERED: PRED20 PO (17:22)
--- NOTE | 2022-11-17 18:35 | NUR ---
DISCHARGE NOTE PT DISCHARGED TO HOME, DAUGHTER PICKED HER UP. PT TAKEN TO ED BY COTTON BAG SEWER VIA WHEELCHAIR. IV REMOVED COMPLETELY. DISCHARGE PAPERWORK PROVIDED AND REVIEWED. MEDICATIONS FAXED TO THE PHARMACY OF HER CHOICE. TELE REMOVED AND RETURNED.
== END 2022-11-17 17:50 | disposition home or self-care (01) | DRG 189 ==
LOC: ER 23:17 → MEDS 23:18
PROVIDERS: Emergency Medicine; Family Medicine; ADMIT Internal Medicine
DX: J96.01 Acute respiratory failure with hypoxia (principal); J44.1 Chronic obstructive pulmonary disease with (acute) exacerbation; I24.8 Other forms of acute ischemic heart disease; N17.9 Acute kidney failure, unspecified; F17.210 Nicotine dependence, cigarettes, uncomplicated; Z20.822 Contact with and (suspected) exposure to COVID-19; Z28.21 Immunization not carried out because of patient refusal; I10 Essential (primary) hypertension; E11.9 Type 2 diabetes mellitus without complications; K21.9 Gastro-esophageal reflux disease without esophagitis; E78.5 Hyperlipidemia, unspecified; Z90.49 Acquired absence of other specified parts of digestive tract; Z95.1 Presence of aortocoronary bypass graft; Z98.891 History of uterine scar from previous surgery; Z88.6 Allergy status to analgesic agent; Z79.84 Long term (current) use of oral hypoglycemic drugs; Z79.51 Long term (current) use of inhaled steroids; Z79.52 Long term (current) use of systemic steroids; Z79.82 Long term (current) use of aspirin; Z79.899 Other long term (current) drug therapy
CPT/HCPCS: 0241U; 36415; 71046; 80053; 80069; 82947; 83690; 84484; 85025; 93005; 93010; 94640; 94644; 94645; 94664; 94760; 96372; 96374; 96376; 99285-25; A9270; G0378; J1650; J1815; J2930; J3480; J7040

== ENCOUNTER 2023-06-02 22:32 | Emergency (ER) | payer MEDICARE, OTHER ==
[~2023-06-02] VITALS: Ht 154.9 cm; Wt 49.9 kg
[~2023-06-02 22:32] MED LIST changes: +Acetaminophen650 M1 PO; +IPRAT-ALBUT 0.5-3 ML INH; +PANTOPRAZOLE SO40 M2 PO; +Ventolin/Prove6.7 GM INH
[2023-06-02 23:00] LABS: Hematocrit 37.8 % (33.0-51.0); Hemoglobin 12.5 g/dL (11.5-16.0); Mean Corpuscular HGB Conc 33.1 g/dL (31.5-36.5); Mean Corpuscular Volume 94 fL (80-100); Mean Platelet Volume 10.1 fL (9.1-12.4); Platelet Count 269 K/mm3 (150-400); RDW Coefficient Variation 13.4 % (11.7-14.2); RDW Standard Deviation 46.3 fL (35.1-46.3); Red Blood Cell Count 4.03 M/mm3 (3.80-5.20); White Blood Cell Count 10.71 K/mm3 (4.00-11.30)
[2023-06-02 23:20] LABS: Albumin, Blood 3.4 g/dL (3.4-5.0); Albumin/Globulin Ratio 0.7 (0.8-1.8); Bilirubin, Total 0.6 mg/dL (0.1-1.0); Calcium, Blood 9.7 mg/dL (8.5-10.1); Globulin, Blood 4.7 g/dL (2.2-4.0); Potassium, Blood 4.7 mmol/L (3.5-5.5); Total Protein, Blood 8.1 g/dL (6.4-8.2)
[2023-06-02 23:25] LABS: BAND PERCENT MAN 2 % (0-8); BASOPHILS PERCENT MAN 0 % (0-2); EOSINOPHILS PERCENT MAN 1 % (0-6); LYMPHOCYTES ABSOLUTE MAN 0.32 K/mm3 (0.84-5.20); LYMPHOCYTES PERCENT MAN 3 % (21-46); MONOCYTES ABSOLUTE MAN 1.92 K/mm3 (0.16-1.47); MONOCYTES PERCENT MAN 18 % (4-13); NEUTROPHILS ABSOLUTE MAN 8.35 K/mm3 (1.96-9.15); SEG NEUTROPHILS PERCENT MAN 76 % (41-73); TOTAL CELLS COUNTED 100
[2023-06-03 00:10] LABS: Influenza A, PCR NEGATIVE (NEGATIVE); Influenza B, PCR NEGATIVE (NEGATIVE); Resp Syncytial Virus, PCR NEGATIVE (NEGATIVE); SARS-Cov-2 (COVID-19) PCR, MMC NEGATIVE (NEGATIVE)
[2023-06-03] MEDS ORDERED: AZIT250 PO (00:54)
[2023-06-03] MEDS ORDERED: PRED20 PO (00:55)
[2023-06-03 01:00] VITALS: BP 181/88
== END 2023-06-03 01:27 | disposition home or self-care (01) ==
LOC: ER 22:32
PROVIDERS: Physician Assistant
DX: J44.1 Chronic obstructive pulmonary disease with (acute) exacerbation (principal); R10.13 Epigastric pain; Z88.8 Allergy status to other drugs, medicaments and biological substances; Z79.899 Other long term (current) drug therapy; Z79.82 Long term (current) use of aspirin; Z79.52 Long term (current) use of systemic steroids; E11.9 Type 2 diabetes mellitus without complications; K21.9 Gastro-esophageal reflux disease without esophagitis; E78.5 Hyperlipidemia, unspecified; I10 Essential (primary) hypertension; F17.210 Nicotine dependence, cigarettes, uncomplicated
CPT/HCPCS: 0241U; 71046; 80053; 83880; 84484; 85025; 93005; 93010; 94644; 94664; 96361; 96374; 99285-25; A9270; J2930; J7030